=== PATIENT | male | born 1980 | race Caucasian/White ===

== ENCOUNTER → 2023-03-11 16:12 | Outpatient (BNVA) | payer OTHER, SELFPAY | PROVIDERS: Visit Provider Psychiatry & Neurology Psychiatry | DX: F40.01 Agoraphobia with panic disorder (principal) | CPT/HCPCS: 99212 ==

== ENCOUNTER 2024-01-13 15:55 | Outpatient (AMB) | payer OTHER, SELFPAY ==
--- NOTE | 2024-01-13 15:33 | MHC.OFFVISPS ---
Intake Intake Visit Reasons: depression Allergies Penicillins Allergy (Mild, Verified 03/11/23 16:25) Rash Medication List - Last Reconciled 01/13/24 by Lucian Lawton MD alprazolam 0.25 mg orally; 1 tab 2 times day may take 1 additional tab daily as needed for anxiety 30 days alprazolam 0.25 mg PO DIRECTED 30 days fluoxetine 20 mg PO DAILY HPI- Psychiatric Chief Complaint: depression HPI Narrative: Patient is a 43-year-old male with past history of severe disabling panic disorder has been stable for an extended period of time. 43 yo male has generally been doing well enjoys his work [employer] are [employer] lives in [place] does not at this pt get panic attacks does feel them coming on able to block them . Patient able to work no significant agoraphobia symptoms. No evidence of abuse her tolerance Past Psychiatric History: Past history of significant panic disorder with generalized anxiety and depressive symptoms Not for a number of years has learned coping strategies Mental Status Exam Mental Status Exam Narrative: Mental Status Exam Narrative: Appearance: Casually dressed Behavior: Cooperative appropriate psychomotor: Within normal limits Speech: Normal volume and prosody Thought proccess logical and goal-directed Thought content: Future oriented no self-harming thoughts Mood: Euthymic Affect: Appropriate to mood full affect SI:denies HI:denies VH/AH:none Delusions: None Insight/judgment: Good insight and judgment Memory/cog: Intact Assessment and Plan Assessment & Plan (1) Panic disorder [episodic paroxysmal anxiety]: Status: Acute Code(s): F41.0 - Panic disorder [episodic paroxysmal anxiety] Plan pt generally doing quite well fearful of trying to taper alprazolam Medications: Refilled alprazolam 0.25 mg PO DIRECTED 90 tabs 1RF 30 days Discontinued alprazolam Discontinued Reason: Duplicate 0.25 mg orally; 1 tab 2 times day may take 1 additional tab daily as needed for anxiety 30 days 90 tabs 2RF Counseling and coordination of Care Details: I spent [] minutes reviewing the record, seeing the patient and documenting in the medical record. Counseling provided to the patient/caregiver as outlined below. Addressed patient/caregiver concerns regarding current medication regime including effective adherence. Addressed patient/caregiver concerns regarding diagnosis and prognosis including accuracy of diagnosis, prognosis over time, impact of diagnosis. Addressed patient/caregiver concerns regarding impact of recent stressors. 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
== END 2024-01-13 16:18 | disposition home or self-care (01) ==
LOC: HO.HOP 15:56
PROVIDERS: Visit Provider Psychiatry & Neurology Psychiatry
DX: F41.0 Panic disorder [episodic paroxysmal anxiety] (principal)
CPT/HCPCS: 99213

== ENCOUNTER → 2024-01-13 15:55 | Outpatient (BNVA) | payer OTHER, SELFPAY | PROVIDERS: Visit Provider Psychiatry & Neurology Psychiatry ==

== ENCOUNTER 2024-05-13 14:37 | Outpatient (AMB) | payer OTHER, SELFPAY ==
--- NOTE | 2024-05-13 15:02 | MHC.OFFVISPS ---
Intake Intake Visit Reasons: depression Allergies Penicillins Allergy (Mild, Verified 03/11/23 16:25) Rash HPI- Psychiatric Chief Complaint: depression HPI Narrative: Patient seen psychiatric follow-up. Patient's mood generally stable his anxiety generally managed with occasional breakthrough anxiety symptoms and jitteriness. No full-blown panic attacks. Patient has been able to function and ongoing way covers large distances for his work and generally manages by keeping things in a generally highly structured manner. No evidence of abuse of alprazolam which she generally takes twice a day Prozac 20 mg daily. Functioning well Past Psychiatric History: Past history of significant panic disorder with generalized anxiety and depressive symptoms Not for a number of years has learned coping strategies Mental Status Exam Mental Status Exam Narrative: Mental Status Exam Narrative: Appearance: Casually dressed Behavior: Cooperative appropriate psychomotor: Within normal limits Speech: Normal volume and prosody Thought proccess logical and goal-directed Thought content: Future oriented focused on techniques to manage anxiety Mood: Euthymic Affect: Appropriate to mood some anxiety SI:denies HI:denies VH/AH:none Delusions: None Insight/judgment: Good insight and judgment Memory/cog: Intact Assessment and Plan Assessment & Plan (1) Panic disorder [episodic paroxysmal anxiety]: Status: Acute Code(s): F41.0 - Panic disorder [episodic paroxysmal anxiety] Plan Continue fluoxetine alprazolam b.i.d. and 1 p.r.n. generally not needed. Discussed risks benefits alternatives chronic use of benzodiazepines the patient has been stable for an extended period of time on this regimen no evidence of abuse or tolerance he is aware that fluoxetine is also used block panic attacks. We have discussed different strategies. Medications: Changed From fluoxetine 20 mg PO DAILY 30 caps 3RF To fluoxetine 20 mg PO DAILY 90 caps 1RF 90 days Counseling and coordination of Care Pt. Self Management counseling: Breathing and Cognitive restructuring Medication management counseling: Effectiveness, Side effects and Dosing range Details-Med Mgmt counseling: No evidence of abuse or tolerance patient has been able to limit alprazolam to 2 times a day Details: I spent [35] minutes reviewing the record, seeing the patient and documenting in the medical record. Counseling provided to the patient/caregiver as outlined below. Addressed patient/caregiver concerns regarding current medication regime including effective adherence. Addressed patient/caregiver concerns regarding diagnosis and prognosis including accuracy of diagnosis, prognosis over time, impact of diagnosis. Addressed patient/caregiver concerns regarding impact of recent stressors. 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
== END 2024-05-13 15:09 | disposition home or self-care (01) ==
LOC: HO.HOP 14:37
PROVIDERS: Visit Provider Psychiatry & Neurology Psychiatry
DX: F41.0 Panic disorder [episodic paroxysmal anxiety] (principal)
CPT/HCPCS: 90833; 99213

== ENCOUNTER → 2024-05-13 14:37 | Outpatient (BNVA) | payer OTHER, SELFPAY | PROVIDERS: Visit Provider Psychiatry & Neurology Psychiatry ==

== ENCOUNTER 2024-08-19 13:56 | Outpatient (AMB) | payer OTHER, SELFPAY ==
--- NOTE | 2024-08-19 14:06 | A.OFFPSYCH_ITS ---
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 Is causing more anxiety feeling out of sorts thinking of leaving the company but not sure what else he might do. 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 Patient continues on Prozac and alprazolam which has generally been quite helpful Past Psychiatric History: Past history of significant panic disorder with generalized anxiety and depressive symptoms Not for a number of years has learned coping strategies Mental Status Exam Mental Status Exam Narrative: Mental Status Exam Narrative: Appearance: Casually dressed Behavior: Cooperative appropriate psychomotor: Within normal limits Speech: Normal volume and prosody Thought proccess logical and goal-directed Thought content: Future oriented focused on techniques to manage anxiety focused on issues related to his work concerns regarding stability and feeling somewhat lost Mood: Mild anxiety Affect: Appropriate to mood some anxiety SI:denies HI:denies VH/AH:none Delusions: None Insight/judgment: Good insight Memory/cog: Intact Assessment and Plan Assessment & Plan Medications: Refilled fluoxetine 20 mg PO DAILY 90 caps 1RF 90 days alprazolam Take 1 tab b.i.d. 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 Counseling provided to the patient/caregiver as outlined below. Addressed patient/caregiver concerns regarding current medication regime including effective adherence. Addressed patient/caregiver concerns regarding diagnosis and prognosis including accuracy of diagnosis, prognosis over time, impact of diagnosis. Addressed patient/caregiver concerns regarding impact of recent stressors. 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
== END 2024-08-19 15:14 | disposition home or self-care (01) ==
LOC: HO.HOP 13:56
PROVIDERS: Visit Provider Psychiatry & Neurology Psychiatry
DX: F32.A Depression, unspecified (principal)
CPT/HCPCS: 90833; 99213

== ENCOUNTER → 2024-08-19 13:56 | Outpatient (BNVA) | payer OTHER, SELFPAY | PROVIDERS: Visit Provider Psychiatry & Neurology Psychiatry ==

== ENCOUNTER 2024-12-16 15:25 | Outpatient (AMB) | payer OTHER, SELFPAY ==
--- NOTE | 2024-12-16 15:18 | MHC.OFFVISPS ---
Intake Intake Visit Reasons: depression Allergies Penicillins Allergy (Mild, Verified 03/11/23 16:25) Rash Medication List - Last Reconciled 12/16/24 by Lucian Lawton MD alprazolam 0.25 mg PO DIRECTED 30 days fluoxetine 20 mg PO DAILY 90 days HPI- Psychiatric Chief Complaint: depression HPI Narrative: Pt seen in f/u made appt primary care . Saw parents in [facility] oct had norovirus.This dig trigger transient anxiety . Now feeling back to himself Got recent call from boss got 5 k raise . Has had some increase in anxiety at times over the past few months occasional feeling of panic. Takes alprazolam once in the morning once in the afternoon has tried cutting back but feels physiologically a panic attack coming on. No evidence of abuse or tolerance we have repeatedly discussed the role of fluoxetine and alprazolam in the treatment of anxiety disorders. Patient does well with structure and routine plays tennis regularly enjoys his work, feels better when he keeps busy. No new medical problems we have discussed trying to maintain his PCP Past Psychiatric History: Past history of significant panic disorder with generalized anxiety and depressive symptoms Not for a number of years has learned coping strategies Mental Status Exam Mental Status Exam Narrative: Mental Status Exam Narrative: Appearance: Casually dressed Behavior: Cooperative appropriate psychomotor: Within normal limits Speech: Normal volume and prosody Thought proccess logical and goal-directed Thought content: Future oriented focused on techniques to manage anxiety feels better about his work Mood: Euthymic Affect: Appropriate to mood SI:denies HI:denies VH/AH:none Delusions: None Insight/judgment: Good insight Memory/cog: Intact Telehealth Telehealth Location of provider rendering services: practice address Location of patient: other Patient Identification confirmed using: Name, : Yes Telehealth method: video Patient verbally consented to treatment: Yes Patient verbally consented to billing insurance company: Yes Minutes spent on Phone/Video with Pt.: 17 Assessment and Plan Assessment & Plan (1) Panic disorder [episodic paroxysmal anxiety]: Status: Acute Code(s): F41.0 - Panic disorder [episodic paroxysmal anxiety] Plan No evidence of abuse or tolerance takes 0.25 mg 2 times a day generally does well with this. Patient has coping strategies to manage anxiety and panic symptoms. Fluoxetine and alprazolam no acute medical problems noted or change in medical status Medications: Refilled fluoxetine 20 mg PO DAILY 90 caps 1RF 90 days alprazolam Take 1 tab b.i.d. may take additional 1 tab daily as needed for anxiety 0.25 mg PO DIRECTED 90 tabs 3RF 30 days Counseling and coordination of Care Pt. Self Management counseling: Breathing and Cognitive restructuring Details-Self Mgmt counseling: Discussed issues related to employment Medication management counseling: Effectiveness, Side effects and Dosing range Details: I spent [20] minutes reviewing the record, seeing the patient and documenting in the medical record. Counseling provided to the patient/caregiver as outlined below. Addressed patient/caregiver concerns regarding current medication regime including effective adherence. Addressed patient/caregiver concerns regarding diagnosis and prognosis including accuracy of diagnosis, prognosis over time, impact of diagnosis. Addressed patient/caregiver concerns regarding impact of recent stressors. 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
== END 2024-12-16 15:26 | disposition home or self-care (01) ==
LOC: HO.HOP 15:25
PROVIDERS: Visit Provider Psychiatry & Neurology Psychiatry
DX: F41.0 Panic disorder [episodic paroxysmal anxiety] (principal)
CPT/HCPCS: 99213

== ENCOUNTER → 2024-12-16 15:25 | Outpatient (BNVA) | payer OTHER, SELFPAY | PROVIDERS: Visit Provider Psychiatry & Neurology Psychiatry ==

== ENCOUNTER 2025-06-22 14:57 | Outpatient (AMB) | payer OTHER, SELFPAY ==
--- NOTE | 2025-06-22 13:49 | A.OFFPSYCH_ITS ---
Intake Intake Visit Reasons: depression Allergies Penicillins Allergy (Mild, Verified 03/11/23 16:25) Rash HPI- Psychiatric Chief Complaint: depression HPI Narrative: Patient seen psychiatric follow-up. Patient generally stable no recent panic attacks avoidance patient does tend to be kind of ritualistic and controlled and his functioning in behavior. 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 No new medical problems. Patient has been trying to get a primary care physician Past Psychiatric History: Past history of significant panic disorder with generalized anxiety and depressive symptoms Not for a number of years has learned coping strategies Mental Status Exam Mental Status Exam Narrative: Mental Status Exam Narrative: Appearance: Casually dressed Behavior: Cooperative appropriate psychomotor: Within normal limits Speech: Normal volume and prosody Thought proccess logical and goal-directed Thought content: Future oriented focused on techniques to manage anxiety feels good about his work Mood: Euthymic Affect: Appropriate to mood SI:denies HI:denies VH/AH:none Delusions: None Insight/judgment: Good insight has multiple tools to manage anxiety Memory/cog: Intact Telehealth Telehealth Location of provider rendering services: practice address Location of patient: other Patient Identification confirmed using: Name, : Yes Telehealth method: video Patient verbally consented to treatment: Yes Patient verbally consented to billing insurance company: Yes Patient informed of any privacy concerns related to visit: Yes Minutes spent on Phone/Video with Pt.: 25 Assessment and Plan Assessment & Plan (1) Panic disorder [episodic paroxysmal anxiety]: Status: Acute Code(s): F41.0 - Panic disorder [episodic paroxysmal anxiety] Plan Continue current plan of care combination of low-dose alprazolam and fluoxetine patient has been able to manage panic disorder maintain high level of functioning some mild obsessional type symptoms but generally doing well. Obsessional traits not interfering tend to be grounding Counseling and coordination of Care Pt. Self Management counseling: General coping skills Medication management counseling: Effectiveness, Side effects and Dosing range Diagnosis and Prognosis Counseling: Accuracy of diagnosis and Adequacy of current interventions Details-Diagnosis/Prognosis counseling: Extensive discussion regarding coping strategies long-term use of alprazolam no evidence of abuse or tolerance. Discussed options to transition to primary care physician Details: I spent [20] minutes reviewing the record, seeing the patient and documenting in the medical record. Counseling provided to the patient/caregiver as outlined below. Addressed patient/caregiver concerns regarding current medication regime including effective adherence. Addressed patient/caregiver concerns regarding diagnosis and prognosis including accuracy of diagnosis, prognosis over time, impact of diagnosis. Addressed patient/caregiver concerns regarding impact of recent stressors. 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
== END 2025-06-22 14:58 | disposition home or self-care (01) ==
LOC: HO.HOP 14:57
PROVIDERS: Visit Provider Psychiatry & Neurology Psychiatry
DX: F41.0 Panic disorder [episodic paroxysmal anxiety] (principal)
CPT/HCPCS: 99214